=== PATIENT | male | born 1995 | race Two or more races ===

== ENCOUNTER 2018-10-02 17:24 | Emergency (ER) | payer OTHER ==
[~2018-10-02] VITALS: Ht 185.4 cm; Wt 84.8 kg
[2018-10-02] MEDS ORDERED: NKM (17:34)
[2018-10-02 17:36] VITALS: BP 119/71
--- NOTE | 2018-10-02 17:39 | NUR ---
ED Nurse Note: Patient walked into ED c/o difficulty breathing on and off for two months, especially when he is sleeping. patient reports he is smoking cigarette everyday, patient also reports dizziness for 1 day, patient denies the symptom at this time. patient is alert awake x 4 ambulatory, breathing unlabored and even.
--- NOTE | 2018-10-02 18:02 | NUR ---
ED Nurse Note: cxr taken at bedside
--- NOTE | 2018-10-02 18:26 | Diagnostic Imaging Report ---
EXAM: XR Chest, 1 View CLINICAL HISTORY: SOB TECHNIQUE: Frontal view of the chest. COMPARISON: No relevant prior studies available. FINDINGS: Lungs: No consolidation. Pleural space: Unremarkable. No pneumothorax. Heart: Unremarkable. No cardiomegaly. Mediastinum: Unremarkable. Bones/joints: No acute fracture. IMPRESSION: No acute cardiopulmonary disease.
--- NOTE | 2018-10-02 18:34 | Emergency Room Report ---
History of Present Illness General Chief Complaint: Dizziness Source: Patient Present Illness HPI 23-year-old male with history of tobacco smoking alcohol intake here complaining of 2 months of intermittent nighttime only shortness of breath. Patient reports that he often smokes and drinks prior to going to sleep and has been having shortness of breath while sleeping waking him up. Patient also complains of acid reflux. Denies chest pain, palpitation, recent URI symptoms. Patient also reports that since last night he started feeling dizzy after alcohol intake however denies dizziness at this moment. Denies history of asthma, abdominal pain, nausea vomiting. Patient is in no distress Allergies: Coded Allergies: No Known Allergies (Unverified , 10/02/18) Patient History Past Medical History: see triage record Past Surgical History: unable to obtain Pertinent Family History: none Social History: Reports: smoking - 2 ppd x7 yrs,, alcohol use - 3 times a week Immunizations: UTD Reviewed Nursing Documentation: PMH: Agreed; PSxH: Agreed Nursing Documentation-PMH Past Medical History: No History, Except For Hx Gastrointestinal Problems: Yes - STOMACH SURGERY 2013 Review of Systems All Other Systems: negative except mentioned in HPI Physical Exam Vital Signs Date Time Temp Pulse Resp B/P (MAP) Pulse Ox O2 Delivery O2 Flow Rate FiO2 10/02/18 17:29 98.1 90 16 121/76 (91) 97 Room Air Sp02 EP Interpretation: reviewed, normal General Appearance: normal inspection, well appearing, no apparent distress, alert, GCS 15 Head: normocephalic, atraumatic Eyes: bilateral eye normal inspection, bilateral eye PERRL ENT: normal ENT inspection, hearing grossly normal, normal pharynx, no angioedema, TMs + canals normal Neck: normal inspection, full range of motion, supple, thyroid normal Respiratory: chest non-tender, lungs clear, normal breath sounds, no rhonchi, no respiratory distress, no retraction, no wheezing Cardiovascular #1: normal inspection, regular rate, rhythm, no gallop, no murmur, normal capillary refill Gastrointestinal: normal inspection, soft, no mass Rectal: deferred Genitourinary: no CVA tenderness Neurologic: normal inspection, alert, oriented x3, responsive Psychiatric: normal inspection, judgement/insight normal Skin: normal inspection, normal color, no rash, warm/dry Lymphatic: normal inspection, no adenopathy Medical Decision Making PA Attestation All my diagnosis and treatment plans were reviewed ad discussed with my supervising physician Dr. Young Diagnostic Impression: Primary Impression: Tobacco abuse Additional Impressions: Shortness of breath GERD (gastroesophageal reflux disease) ER Course 23-year-old male with history of tobacco smoking alcohol intake here complaining of 2 months of intermittent nighttime only shortness of breath. Patient reports that he often smokes and drinks prior to going to sleep and has been having shortness of breath while sleeping waking him up. Patient also complains of acid reflux. Denies chest pain, palpitation, recent URI symptoms. Patient also reports that since last night he started feeling dizzy after alcohol intake however denies dizziness at this moment. Denies history of asthma, abdominal pain, nausea vomiting. Patient is in no distress Ddx considered but are not limited to: [place], Angina, COPD, GERD, tobacco abuse Vital signs: are WNL, pt. is afebrile H&PE are most consistent with shortness of breath secondary to tobacco abuse, GERD ORDERS: Chest x-ray, albuterol, omeprazole ED INTERVENTIONS: None required at this time. DISCHARGE: At this time pt. is stable for d/c to home. Will provide printed patient care instructions, and any necessary prescriptions. Care plan and follow up instructions have been discussed with the patient prior to discharge. Smoking cessation advised also highly advised to not have any alcoholic beverages or smoke prior to sleeping. Chest X-Ray Diagnostic Results Chest X-Ray Diagnostic Results : Chest X-Ray Ordered: Yes Indication: Shortness of Breath EP Interpretation: Yes PA Xray: Interpretation reviewed, by supervising MD, and agrees with findings. Interpretation: no consolidation, no effusion, no pneumothorax Impression: No acute disease Electronically Signed by: modesta Akers Text FINDINGS: Lungs: No consolidation. Pleural space: Unremarkable. No pneumothorax. Heart: Unremarkable. No cardiomegaly. Mediastinum: Unremarkable. Bones/joints: No acute fracture. IMPRESSION: No acute cardiopulmonary disease. Last Vital Signs Date Time Temp Pulse Resp B/P (MAP) Pulse Ox O2 Delivery O2 Flow Rate FiO2 10/02/18 17:36 90 16 Room Air 10/02/18 17:36 98.1 119/71 99 Disposition: HOME, SELF-CARE Condition: Stable Scripts Omeprazole (OMEPRAZOLE) 20 Mg Tablet. 20 MG ORAL DAILY, #30 TAB Prov: Modesta Baez 10/02/18 Albuterol Sulfate* (PROAIR HFA*) 8.5 Gm Hfa.aer.ad 2 PUFFS INH Q6H, #8.5 GM 0 Refills Prov: Modesta Baez 10/02/18 Referrals: NOT CHOSEN IPA/MD,REFERRING (PCP) Patient Instructions: Food Choices for Gastroesophageal Reflux Disease, Adult, [id number], Smoking Cessation, Tips for Success, [id number] Additional Instructions: Shortness of breath secondary to extensive history of tobacco smoke and alcohol intake. Follow with the primary care provider possible chest CT scan needed. Modesta Baez Oct 02, 2018 18:34
[2018-10-02] MEDS ORDERED: PROAIR HFA8.5 GM INH (18:35)
[2018-10-02] MEDS ORDERED: OMEPRAZOLE20 M3 ORAL (18:38)
[2018-10-02 18:49] VITALS: BP 119/71
--- NOTE | 2018-10-02 18:49 | NUR ---
ER DISCHARGE NOTE: Patient is cleared to be discharged per SHANNON MARTINEZ, pt is aox4, on room air, with stable vital signs. pt was given dc and prescription instructions, pt was able to verbalize understanding, pt id band removed without complications. pt is able to ambulate with steady gait. pt took all belongings.
== END 2018-10-02 18:49 | disposition home or self-care (01) ==
LOC: EMR 17:50
DX: R06.02 Shortness of breath (principal); K21.9 Gastro-esophageal reflux disease without esophagitis; F17.210 Nicotine dependence, cigarettes, uncomplicated; F10.10 Alcohol abuse, uncomplicated
CPT/HCPCS: 71045; 99283

== ENCOUNTER 2018-12-19 22:06 | Emergency (ER) | payer OTHER ==
[~2018-12-19] VITALS: Ht 182.9 cm; Wt 84.8 kg
[~2018-12-19 22:06] MED LIST: NKM; OMEPRAZOLE20 M3 ORAL; PROAIR HFA8.5 GM INH
--- NOTE | 2018-12-19 22:16 | NUR ---
ER Nurse Note: Pt not in waiting room; will call again
[2018-12-19 22:28] VITALS: BP 116/81
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
[2018-12-19] MEDS ORDERED: CEPHALEXIN500 MG ORAL (22:38)
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
[2018-12-19] MEDS ORDERED: Neosporin Oint Ud Pkt TOPIC ONE (22:45)
[2018-12-19 22:49] VITALS: BP 116/81
--- NOTE | 2018-12-19 22:50 | NUR ---
ED Nurse Note: Pt cleared by health care Provider for discharge. DC instructions/prescription was given and explained to pt and verbalized understanding of teachings. All medical deviecs such as ID band removed. Pt is AAO x4, ambulatory and left with all personal belongings.
== END 2018-12-19 22:50 | disposition home or self-care (01) ==
LOC: EMR 22:39
DX: S50.311A Abrasion of right elbow, initial encounter (principal); W18.30XA Fall on same level, unspecified, initial encounter; Y92.9 Unspecified place or not applicable
CPT/HCPCS: 99282